=== PATIENT | male | born 1950 | race Caucasian/White ===

== ENCOUNTER 2018-06-26 05:57 | Inpatient (IN) ==
[2018-06-26] MEDS ORDERED: Metoprolol Tartrate 25 MG Tablet PO ONE (06:29)
[2018-06-26] MEDS ORDERED: Chlorhexidine Gluconate 2% 1 Pack (2 Cloths) TOPICAL ONE (06:29)
[2018-06-26] MEDS ORDERED: Dexamethasone Inj 20 MG/5 ML Vial IV.PUSH PRN (06:32)
[2018-06-26] MEDS ORDERED: Sodium Chlor 0.9% Inj 40 ML, Bupivacaine Liposo PF 1.3% Inj 20 ML P-ARTICULR SCH ×2 (06:45)
[2018-06-26] MEDS ORDERED: Chlorhexidine 4% Topical 120 APPLIC/120 ML Bottle TOPICAL SCH (06:45)
[2018-06-26] MEDS ORDERED: ceFAZolin 2 GM Premix Inj 2 GM/100 ML BAG IV.SIG ONE (06:49)
[2018-06-26] MEDS ORDERED: TRANEXAMIC ACID IV.SIG SCH (07:00)
[2018-06-26] MEDS ORDERED: Vancomycin Inj 1,000 MG in Sodium Chlor 0.9% Inj 250 ML IV.SIG SCH (07:00)
[2018-06-26] MEDS ORDERED: SODIUM CHLOR 0.9% IV.SIG SCH (07:00)
[2018-06-26] MEDS ORDERED: Sodium Chlor 0.9% Inj 500 ML IV.SIG SCH (07:00)
[2018-06-26] MEDS ORDERED: ceFAZolin 2 GM Premix Inj 2 GM/50 ML PIGGYBACK IV.SIG SCH (07:00)
--- NOTE | 2018-06-26 07:01 | P.DCO ---
- Physical Therapy Physical Therapy: Gait training, Transfer training, bed to chair Hip: Total hip Right Lower Extremity Weight Bearing: Weight bearing as tolerated Right Lower Extremity Range of Motion: Active ROM - Nursing Nursing: Celeste vides Dressing changes: Do not change dressing Additional instructions: First dressing change in the office - Certification Need for Home Health services: I have seen patient Pascual De Luna on 06/26/18. My clinical findings support the need for the requested home health care services because: Need for Home Health Services: Limited ability to care for self, High risk of falls Homebound Certification: I certify that my clinical findings support that this patient is homebound because: Homebound Certification: Post-op weakness, Unsteady gait/balance
[2018-06-26] MEDS ORDERED: Sugammadex Inj 200 MG/2 ML Vial IV.PUSH ONE (07:33)
[2018-06-26] MEDS ORDERED: Dexmedetomidine Inj 200 MCG/2 ML Vial ONE (07:33)
[2018-06-26] MEDS ORDERED: Phenylephrine/NS 1000 MCG/10ML Syringe IV.PUSH ONE (08:25)
[2018-06-26] MEDS ORDERED: Lidocaine PF 1% Inj 5 ML Syringe INFILTRATN ONE (08:25)
[2018-06-26] MEDS ORDERED: Post-op Orders (for Pharmacy) OTHER STA (10:23)
[2018-06-26] MEDS ORDERED: Morphine Inj 4 MG/ML Vial IV.PUSH PRN (10:23)
[2018-06-26] MEDS ORDERED: Bisacodyl 10 MG Supp RECTAL PRN (10:23)
[2018-06-26] MEDS ORDERED: Aluminum/Magnesium/Simethacone Susp 30 ML UDC PO PRN (10:23)
--- NOTE | 2018-06-26 10:26 | P.OP ---
- Preoperative Diagnosis (1) Osteoarthritis of right hip - Postoperative Diagnosis (1) Osteoarthritis of right hip Date of procedure: 06/26/18 Procedure: Right total hip arthroplasty Anesthesia: GETA Surgeon: Satish Hannon MD Adjunct Instructor In Economics: BET[employer] The surgical procedure was assisted by my Advanced Registered Nurse Practitioner. My SOIL CONSERVATION AIDE presence was necessary throughout this case for the manipulation and positioning of the surgical extremity. My SOIL CONSERVATION AIDE was assisting me throughout the duration of this procedure. The skill set of an Advance Registered Nurse Practitioner was medically necessary to complete this procedure. During the surgical case, the surgical services manager was working at the back table and the Advance Registered Nurse Practitioner was directly assisting me. Operation and Findings: IMPLANT DESCRIPTION: 1. [place] Gription Cup, acetabular size 52. 2. [place] AltrX polyethylene, neutral. 4. [place] femoral stem size 11, no collar, standard offset. 5. Femoral head/neck ceramic, 36, +1.5. ESTIMATED BLOOD LOSS: 250 cc. JUSTIFICATION FOR PROCEDURE: The patient has end-stage osteoarthritis to the hip. There is an attached conservative measures pathway form in the chart that describes the nonoperative measures that were undertaken prior to consideration of surgical management. The patient understood the risks and benefits of surgical management. See my office notes for further details. PROCEDURE: The patient was brought back to the operative theatre. Adequate anesthesia was obtained. The patient received intravenous vancomycin and Ancef. The patient was carefully placed on the operative table. The lower extremity was prepped and draped in the usual sterile fashion. Fluoroscopic images were obtained. We made a standard anterior incision over the hip. We dissected through the TFL fascia, exposing the anterior capsule. Arthrotomy was performed in a T-shaped fashion. The capsule was tagged with a #2 FiberWire. End-stage arthritis was identified. Osteotomy was performed through the femoral neck exposing the acetabulum. Remnants of the labrum were resected and osteophytes were removed. We sequentially reamed the acetabulum. We trialed the hip and placed the final cup into position. This was done under fluoroscopic guidance to obtain the appropriate inclination and anteversion. A manhole cover was placed into the acetabular component. We then placed the final polyethylene into position and confirmed that it was well seated. Capsular attachments on the calcar and the inner aspect of the greater trochanter were resected. On the proximal aspect of the femur we used a rongeur , box osteotome, canal finder, sequential broaches and lateralizing rasp. We calcar planed the proximal femur. Then thoroughly irrigated the wound. We trialed the hip with the appropriate size stem. We placed the final stem in to position and trialed again. The hip was stable while it was externally rotated 70 degrees when the leg was lowered to the floor. The final head was applied, and final fluoroscopic images were obtained. The wound was thoroughly irrigated again. Interarticular injection of liposomal bupivacaine was given. The capsule was closed with #2 FiberWire and #1 Vicryl. The deep fascia was closed with a #2 Stratafix, followed by 2-0 Vicryl in the skin and Dermabond dressing. Postop plan is to weight-bear as tolerated. DVT prophylaxis will be performed with SCDs, EROS vera, early mobilization, and Lovenox followed by aspirin.
[2018-06-26] MEDS: Sod Chloride 0.9% Inj 1,000 ML IV.CONT SCH ×2 (10:30→23:53)
--- NOTE | 2018-06-26 10:36 | XR ---
EXAM DATE: 06/26/2018 10:19 AM EDT AGE/SEX: 68 years / Male INDICATIONS: Right anterior hip replacement done in operating room. CLINICAL DATA: This is the patient's initial encounter. Patient reports that signs and symptoms have been present for 1 day and indicates a pain score of Nonresponsive. MEDICAL/SURGICAL HISTORY: Non-responsive. Non-responsive. COMPARISON: No prior exams available for comparison. FINDINGS: 3 spot intraoperative fluoroscopic views of the right hip are obtained and demonstrate a total hip ar throplasty in satisfactory position. CONCLUSION: Right hip arthroplasty. Electronically signed by: Max Reinoso MD 06/26/2018 10:35 AM EDT
[2018-06-26] MEDS ORDERED: fentaNYL Citrate Inj 100 MCG/2 ML Ampul ONE (11:04)
[2018-06-26] MEDS ORDERED: Morphine Inj 4 MG/ML Vial ONE (11:05)
[2018-06-26] MEDS ORDERED: *morphine SULFATE 4 MG/ML PERIprocedure ONLY ONE (11:18)
[2018-06-26] MEDS ORDERED: *morphine SULFATE 10 MG/ML PERIprocedure ONLY ONE (11:23)
[2018-06-26] MEDS ORDERED: *Meperidine Inj 25 MG/ML Vial PERIprocedural Use ONLY ONE (11:35)
[2018-06-26] MEDS ORDERED: HYDROmorphone PF Inj 2 MG/ML Vial ONE (11:50)
[2018-06-26] MEDS ORDERED: Tranexamic Acid Inj 700 MG in Sodium Chlor 0.9% Inj 100 ML IV.SIG ONE (12:00)
--- NOTE | 2018-06-26 12:17 | XR ---
EXAM DATE: 06/26/2018 12:14 PM EDT AGE/SEX: 68 years / Male INDICATIONS: Post op total right hip replacement. CLINICAL DATA: This is the patient's initial encounter. Patient reports that signs and symptoms have been present for 1 day and indicates a pain score of Nonresponsive. MEDICAL/SURGICAL HISTORY: Hypertension. Renal calculi. gout. . Left hip replacement. Lithotri psy. Spinal fusion. COMPARISON: No prior exams available for comparison. FINDINGS: There are bilateral total hip arthroplasties identified. A small amount of subcutaneous air seen abou t the right hip from right hip arthroplasty. No radiographic evidence of loosening. CONCLUSION: Right hip arthroplasty postop. Electronically signed by: Max Reinoso MD 06/26/2018 12:16 PM EDT
[2018-06-26] MEDS ORDERED: Zolpidem Tartrate 5 MG Tablet PO PRN (21:00)
[2018-06-26] MEDS: Multivitamin/Minerals Therapeutic Tablet PO SCH (21:48)
[2018-06-26] MEDS: Senna/Docusate Sodium 8.6/50 MG Tablet PO SCH (21:48)
[2018-06-27 06:02] LABS: Hematocrit 38.4 % (39.0-51.0)
--- NOTE | 2018-06-27 07:12 | P.PNOP ---
Subjective Interval history: The patient is resting comfortably in bed with minimal pain to the right hip. The patient and his had multiple questions about surgery which I addressed in detail. Physical Exam Vital signs: Vital Signs 06/26/18 10:48 06/26/18 11:00 06/26/18 11:15 Temperature 99.0 F Pulse Rate 83 79 79 Respiratory Rate 16 16 16 Blood Pressure 80/47 L 86/47 L 104/50 L Pulse Oximetry 96 97 97 06/26/18 11:30 06/26/18 11:45 06/26/18 11:54 Temperature Pulse Rate 80 88 83 Respiratory Rate 16 16 16 Blood Pressure 102/55 L 115/62 111/62 Pulse Oximetry 97 97 97 06/26/18 12:30 06/26/18 16:00 06/26/18 19:15 Temperature 95.5 F L 96.8 F L 97.2 F L Pulse Rate 93 H 65 70 Respiratory Rate 18 18 18 Blood Pressure 125/72 128/62 147/70 H Pulse Oximetry 98 100 98 06/26/18 23:15 06/26/18 23:49 06/27/18 03:55 Temperature 97.7 F 97.7 F Pulse Rate 79 83 Respiratory Rate 18 18 18 Blood Pressure 107/67 117/72 Pulse Oximetry 99 97 Intake & Output 06/26/18 06/27/18 06/27/18 18:59 06:59 18:59 Intake Total 2506.95 / 2506.95 628 / 628 Output Total 200 / 200 Balance 2306.95 / 2306.95 628 / 628 Weight 74.7 kg Intake: IV 1306.95 / 1306.95 148 / 148 NS Inj 1,000 ML @ 80 mls/hr IV. 48 / 48 CONT .[id number] MARIA TERESA Rx#:[id number] LR 1000 mL Inj 1,000 ML @ 30 800 / 800 mls/hr IV.SIG .Q24H MARIA TERESA Rx#: [id number] Cyklokapron Inj 695 MG In NS 106.95 / 106.95 Inj 100 ML @ 200 mls/hr IV.SIG ONCE MARIA TERESA Rx#:[id number] Vancomycin Inj 1,000 MG In NS 250 / 250 Inj 250 ML @ 250 mls/hr IV.SIG DRY TRANSFER WORKER MARIA TERESA Rx#:[id number] Ancef 2 GM Premix Inj 2 gm In 50 / 50 50 ml @ 100 mls/hr IV.SIG DRY TRANSFER WORKER MARIA TERESA Rx#:[id number] Ancef Inj 1,000 MG In NS Inj 100 / 100 100 / 100 100 ML @ 200 mls/hr IV.SIG Q6H MARIA TERESA Rx#:[id number] Oral 1200 / 1200 480 / 480 Output: Estimated Blood Loss 200 / 200 Other: # Voids 4 4 Date of Last Bowel Movement 06/25/18 06/25/18 # Bowel Movements 0 Narrative: The patient's dressing is clean, dry, and intact. EHL/TA/G are intact. 2+ pedal pulse. The patient's calf is soft and nontender. Sensation is intact to light touch distally. Results - Labs CBC & Chem 7: 06/27/18 04:50 Laboratory Results - last 24 hr 06/26/18 06/27/18 07:00 04:50 Hgb 13.0 Hct 38.4 L Blood Type A Positive Blood Type Recheck Required Antibody Screen Negative - Imaging Impressions Hip X-Ray 06/26/18 00:00 CONCLUSION: Right hip arthroplasty. Hip X-Ray 06/26/18 10:23 CONCLUSION: Right hip arthroplasty postop. - Procedures Right total hip arthroplasty Assessment and Plan - Problem List (1) Status post total hip replacement, right Code(s): Z96.641 - Presence of right artificial hip joint Status: Acute (2) Osteoarthritis of right hip Code(s): M16.11 - Unilateral primary osteoarthritis, right hip Status: Acute - Assessment and Plan POD #1: [Right] total hip arthroplasty 1. Weightbearing as tolerated on [right] lower extremity. 2. Lovenox followed by aspirin for DVT prophylaxis. 3. Ice as needed for swelling. 4. Stable per ortho for discharge to home health today. 5. The patient will follow up with Dr. Hannon and/or BETTE Zayas as previously scheduled.
[2018-06-27] MEDS ORDERED: Dexamethasone Inj 20 MG/5 ML Vial IV.PUSH ONE (08:00)
[2018-06-27 08:26] VITALS: RESP 18; TEMP 98.6
[2018-06-27] MEDS: Senna/Docusate Sodium 8.6/50 MG Tablet PO SCH (08:35)
[2018-06-27] MEDS: Multivitamin/Minerals Therapeutic Tablet PO SCH (08:35)
[2018-06-27] MEDS ORDERED: INCRUSE ELLIPTA INH SCH (09:00)
[2018-06-27] MEDS ORDERED: Allopurinol 300 MG Tablet PO SCH (09:00)
[2018-06-27] MEDS ORDERED: Finasteride 5 MG Tablet PO SCH (09:00)
[2018-06-27] MEDS ORDERED: Enoxaparin Inj 40 MG/0.4 ML Syringe SQ SCH (10:00)
[2018-06-27 12:21] VITALS: BP 146/97; PULSE 100; O2SAT 99
[2018-06-27] MEDS: Sod Chloride 0.9% Inj 1,000 ML IV.CONT SCH (12:34)
--- NOTE | 2018-06-28 23:29 | P.DS ---
Date of admission: 06/26/18 05:57 Primary care physician: PROVIDER NON STAFF Attending physician on discharge: Satish Hannon Anticipated date of discharge: 06/27/18 Brief History from admission: The patient was admitted to the hospital for severe OA of the right hip to have a right SALIMA. DS: Diagnosis - Discharge Diagnosis (1) Status post total hip replacement, right Status: Acute (2) Osteoarthritis of right hip Status: Acute DS: Summary Hospital Course: The patient was admitted to the hospital for severe osteoarthritis of the [right ] hip to have a [right] total hip arthroplasty. The patient's surgery went well with no complication. The patient is on a [regular] diet. The patient's DVT prophylaxis includes use of [Lovenox followed by aspirin]. The patient is weightbearing as tolerated. The patient was discharged [home with home health] and will follow up in the office with Dr. Hannon and/or BETTE Zayas as previously scheduled. - Time Spent with Patient Total time spent providing and/or coordinating discharge services: Greater than 30 minutes - Quality: VTE Deep Vein Thrombosis/Pulmonary Embolism Present on Admission: No Exam Narrative: see last progress note for physical exam. Results Procedures completed during hospitalization: Right total hip arthroplasty - Impressions ITS Impressions Hip X-Ray 06/26/18 10:23 CONCLUSION: Right hip arthroplasty postop. Discharge Plan - Discharge Disposition Patient Disposition: W/Home Health Service - Discharge Condition Condition: Stable - Discharge Order Discharge Orders: Discharge Order (Routine); Ordered 06/26/18 Ordered By: Ramirez Blanchard - Physicians Team Primary Care Provider: NON STAFF,PROVIDER Attending Provider: Satish Hannon Other Providers: ; Nurse Oncall,Agency - Rxs /Orders / Referrals /Forms Prescriptions: Continue allopurinol 300 mg Tablet 300 mg PO DAILY finasteride 5 mg Tablet 5 mg PO DAILY fluticasone [Flonase Allergy Relief] 50 mcg/actuation [place],Suspension 2 spray INTRANASAL DAILY losartan 50 mg Tablet 50 mg PO DAILY rosuvastatin [Crestor] 20 mg Tablet 20 mg PO DAILY tamsulosin [Flomax] 0.4 mg Capsule,Extended Release 24hr 0.4 mg PO DAILY umeclidinium [Incruse Ellipta] 62.5 mcg/actuation Blister With Device 1 inh INHALATION Q24H Discontinued meloxicam [Mobic] 15 mg Tablet 15 mg PO DAILY Ambulatory Orders / Order Sets / DME: Adjustable Commode 3-in-1 (1 each) (Routine) Location: Determined by Patient Ordered By: Ramirez Blanchard Walker With Front Wheels (1 each) (Routine) Location: Determined by Patient Ordered By: Ramriez Blanchard Referrals: Satish Hannon MD [Physician] - See Instructions (f/u in the office with Dr. Hanonn or BETTE Zayas as previously scheduled.) NON STAFF,PROVIDER [Primary Care Provider] - See Instructions - Discharge Instructions Patient Printed Instructions: How to Use an Incentive Spirometer (DC), How to Choose and Use a Walker (GEN), EROS Hose (DC), Total Hip Replacement (DC) Additional Instructions: Prescriptions sent to pharmacy for pain med Full weight bearing; No Dressing changes per surgeon. May shower Discharge Care Plan Goals for Total Hip Replacement You had a hip replacement surgery. This means your natural hip was replaced with an artificial joint (prosthesis). You may be recovering at home or in a rehabilitation facility. Either way, you must take care of your new hip. Here are some goals to help you heal well. Directions to Meet your Goals: 1. Activity & Exercises: * Take pain medicine as directed by your doctor. * Dont drive until your doctor says its OK. And never drive while taking opioid pain medicine. * Wear the support stockings you were given in the hospital as directed by your surgeon. * Dont sit for more than 30 to 45 minutes at one time. * Dont lean forward while sitting. * Dont cross your legs. * Keep your feet flat on the floor. Dont turn your foot or leg inward. This stresses your hip joint. * Use an elevated toilet seat for 6 weeks after surgery. * Nap if you are tired, but dont stay in bed all day. * Sit on a firm cushion when you ride in a car and avoid sitting too low. Try not to bend your hip too much when getting in and out of the car. 2. Prevent Falls/Injury: * Follow your doctors orders regarding how much weight to put on the affected leg. * Dont bend at the hip when you bend over. Don't bend at the waist to put on socks and shoes. And avoid picking up items from the floor. * Use a cane, crutches, a walker, or handrails until your balance, flexibility, and strength improve. And remember to ask for help from others when you need it. * Free up your hands so that you can use them to keep balance. Use a donell pack , apron, or pockets to carry things. * Arrange your household to keep the items you need handy. Keep everything else out of the way. * Remove items that may cause you to fall, such as throw rugs and electrical cords. * Use nonslip bath mats, grab bars, an elevated toilet seat, and a shower chair in your bathroom * Sit on a shower stool or chair when you shower to keep from falling. 3. Precautions: * Prevent infection. Any infection will need to be treated immediately. Call your doctor right away if you think you might have an infection. * Tell your dentist that you have an artificial joint and take antibiotics as prescribed before any dental work. * Tell all your healthcare providers about your artificial joint before any medical procedure. * Maintain a healthy weight. Get help to lose any extra pounds. Added body weight puts stress on the joints. 4. Incision Care: * Prevent infection by washing your hands often. If an infection occurs, it will need to be treated right away. * Call your doctor right away if you think you may have an infection. Symptoms include a fever or an incision that leaks white, green, or yellow fluid. * Don't soak your incision in water until your doctor says its OK. This means no hot tubs, bathtubs, or swimming pools. * Follow your doctor's instructions for changing the dressing. * Dont rub the incision, or apply creams or lotions to it. * If you notice any redness or drainage around the bandage site, contact your surgeon's office immediately. 5. Follow-Up: Do Not miss your follow-up appointment. Keep up with all your appointments and yearly check ups When to call your doctor: Call your doctor right away if you have: Hip pain gets worse Pain or swelling in your calf or leg not related to your incision Tenderness or redness in your calf Fever of 100.4F (38C) or higher, or as directed by your healthcare provider Shaking chills Swelling or redness at the incision site gets worse Fluid draining from the incision Call 911: Call 911 right away if you have: Chest pain Shortness of breath Any pain or tenderness in your calf - Post Discharge Care Plan Care Plan Goals: Discharge Care Plan Goals for Total Hip Replacement You had a hip replacement surgery. This means your natural hip was replaced with an artificial joint (prosthesis). You may be recovering at home or in a rehabilitation facility. Either way, you must take care of your new hip. Here are some goals to help you heal well. Directions to Meet your Goals: 1. Activity & Exercises: * Take pain medicine as directed by your doctor. * Dont drive until your doctor says its OK. And never drive while taking opioid pain medicine. * Wear the support stockings you were given in the hospital as directed by your surgeon. * Dont sit for more than 30 to 45 minutes at one time. * Dont lean forward while sitting. * Dont cross your legs. * Keep your feet flat on the floor. Dont turn your foot or leg inward. This stresses your hip joint. * Use an elevated toilet seat for 6 weeks after surgery. * Nap if you are tired, but dont stay in bed all day. * Sit on a firm cushion when you ride in a car and avoid sitting too low. Try not to bend your hip too much when getting in and out of the car. 2. Prevent Falls/Injury: * Follow your doctors orders regarding how much weight to put on the affected leg. * Dont bend at the hip when you bend over. Don't bend at the waist to put on socks and shoes. And avoid picking up items from the floor. * Use a cane, crutches, a walker, or handrails until your balance, flexibility, and strength improve. And remember to ask for help from others when you need it. * Free up your hands so that you can use them to keep balance. Use a donell pack , apron, or pockets to carry things. * Arrange your household to keep the items you need handy. Keep everything else out of the way. * Remove items that may cause you to fall, such as throw rugs and electrical cords. * Use nonslip bath mats, grab bars, an elevated toilet seat, and a shower chair in your bathroom * Sit on a shower stool or chair when you shower to keep from falling. 3. Precautions: * Prevent infection. Any infection will need to be treated immediately. Call your doctor right away if you think you might have an infection. * Tell your dentist that you have an artificial joint and take antibiotics as prescribed before any dental work. * Tell all your healthcare providers about your artificial joint before any medical procedure. * Maintain a healthy weight. Get help to lose any extra pounds. Added body weight puts stress on the joints. 4. Incision Care: * Prevent infection by washing your hands often. If an infection occurs, it will need to be treated right away. * Call your doctor right away if you think you may have an infection. Symptoms include a fever or an incision that leaks white, green, or yellow fluid. * Don't soak your incision in water until your doctor says its OK. This means no hot tubs, bathtubs, or swimming pools. * Follow your doctor's instructions for changing the dressing. * Dont rub the incision, or apply creams or lotions to it. * If you notice any redness or drainage around the bandage site, contact your surgeon's office immediately. 5. Follow-Up: Do Not miss your follow-up appointment. Keep up with all your appointments and yearly check ups When to call your doctor: Call your doctor right away if you have: Hip pain gets worse Pain or swelling in your calf or leg not related to your incision Tenderness or redness in your calf Fever of 100.4F (38C) or higher, or as directed by your healthcare provider Shaking chills Swelling or redness at the incision site gets worse Fluid draining from the incision Call 911: Call 911 right away if you have: Chest pain Shortness of breath Any pain or tenderness in your calf
== END 2018-06-27 14:31 | disposition home health service (06) ==
LOC: HSDI 05:57 → N06 12:29
PROVIDERS: ADMIT Orthopaedic Surgery; ATTEND Orthopaedic Surgery